=== PATIENT | male | born 1980 | race Hispanic/Latino ===

== ENCOUNTER 2021-04-21 21:40 | Emergency (ER) | payer SELFPAY ==
[~2021-04-21] VITALS: Ht 182.9 cm; Wt 97.5 kg
[2021-04-21] MEDS ORDERED: KETOROLAC 60 MG VIAL (30MG/ML) IM STA (22:24)
[2021-04-21] MEDS ORDERED: ONDANSETRON ODT 4MG TAB SL STA (22:24)
[2021-04-21] MEDS ORDERED: MORPHINE 4 MG SYG IM STA (22:24)
[2021-04-21] MEDS ORDERED: NAPR-1180 PO (23:23)
[2021-04-21] MEDS ORDERED: ACET1TAB25 PO (23:23)
[2021-04-21 23:26] VITALS: BP 167/74
== END 2021-04-21 23:32 | disposition home or self-care (01) ==
LOC: EDH 21:40
DX: S22.32XA Fracture of one rib, left side, initial encounter for closed fracture (principal); X58.XXXA Exposure to other specified factors, initial encounter; Y93.89 Activity, other specified; Y92.89 Other specified places as the place of occurrence of the external cause; Y99.8 Other external cause status
CPT/HCPCS: 71101; 96372 ×2; 99284; J1885; J2270